=== PATIENT | female | born 1955 | race Caucasian/White ===

== ENCOUNTER 2017-04-24 19:29 | Emergency (ER) | payer MEDICARE, MEDICAID ==
[~2017-04-24] VITALS: Ht 162.6 cm; Wt 57.2 kg
[2017-04-24 19:45] VITALS: BP 140/68
[2017-04-24] MEDS ORDERED: GEMFIBROZIL600 MG ORAL (19:45)
[2017-04-24] MEDS ORDERED: ZYPREXA5 MG ORAL (19:45)
[2017-04-24] MEDS ORDERED: PROGRAF1 MG ORAL (19:45)
[2017-04-24] MEDS ORDERED: AMLODIPINE BESYL5 MG ORAL (19:45)
[2017-04-24] MEDS ORDERED: HYDROCODON-ACE1 EA15 ORAL (19:45)
[2017-04-24] MEDS ORDERED: PROPRANOLOL HCL10 MG ORAL (19:45)
[2017-04-24] MEDS ORDERED: MAG-OXIDE400 M1 PO (19:45)
[2017-04-24] MEDS ORDERED: FLUDROCORTISON0.1 MG PO (19:45)
[2017-04-24] MEDS ORDERED: URSODIOL300 MG ORAL (19:45)
[2017-04-24] MEDS ORDERED: TOPIRAMATE25 MG ORAL (19:45)
[2017-04-24] MEDS ORDERED: FLUCONAZOLE100 MG ORAL (19:45)
[2017-04-24] MEDS ORDERED: Morphine Sulfate 2mg/ml Inj IVP ONE (20:00)
[2017-04-24 20:40] VITALS: BP 140/68
[2017-04-24] MEDS ORDERED: ACETAMINOPHEN-1 EAC1 ORAL (21:49)
[2017-04-24 22:00] VITALS: BP 138/70
[2017-04-24 22:10] VITALS: BP 138/70
--- NOTE | 2017-04-24 22:11 | Emergency Room Report ---
History of Present Illness General Chief Complaint: Multiple Trauma/Fall Source: Patient, Family Member Present Illness HPI 61-year-old female brought in by EMS after traumatic slip and fall down 8 stairs at home Patient's daughter states she slipped because of slippers she was wearing states she rolled down stairs Denies LOC, vomiting, change in vision Complaining of pain to lower neck and left-sided chest- but denies associated shortness of breath Patient was allegedly holding a cup that impacted left chest during fall Denies any lower extremity or upper extremity pain Denies abdominal pain, vomiting Not on ASA or AC Allergies: Coded Allergies: PENICILLINS (Unverified Allergy, Unknown, 04/24/17) Patient History Past Medical History: none Past Surgical History: other - renal transplant Pertinent Family History: none Last Menstrual Period: None Now: No Immunizations: UTD Reviewed Nursing Documentation: PMH: Agreed, PSxH: Agreed Nursing Documentation-PMH Hx Hypertension: Yes Hx Diabetes: Yes Hx Seizures: Yes Review of Systems All Other Systems: negative except mentioned in HPI Physical Exam Vital Signs Date Time Temp Pulse Resp B/P (MAP) Pulse Ox O2 Delivery O2 Flow Rate FiO2 04/24/17 19:25 98.2 62 18 134/66 98 Room Air Sp02 EP Interpretation: reviewed, normal General Appearance: normal inspection, well appearing, no apparent distress, alert, GCS 15, non-toxic Head: normocephalic, atraumatic Eyes: bilateral eye PERRL, bilateral eye EOMI ENT: normal ENT inspection, hearing grossly normal, normal pharynx, no angioedema, normal voice, TMs + canals normal, uvula midline, moist mucus membranes Neck: normal inspection, full range of motion, supple, thyroid normal, no meningismus, no bony tend, other - Full neck ROM, mild ttp to lower C-spine. Respiratory: normal inspection, lungs clear, normal breath sounds, no rhonchi, no respiratory distress, no retraction, no accessory muscle use, no wheezing, speaking full sentences, other - No ecchymoses or crepitus on palpation to left chest. Mild ttp, chest symmetrical Cardiovascular #1: regular rate, rhythm, no edema, no JVD, normal capillary refill Gastrointestinal: normal inspection, normal bowel sounds, non tender, soft, no mass, no peritonitis, non-distended, no guarding, no hernia, no pulsatile mass Genitourinary: no CVA tenderness Musculoskeletal: normal inspection, back normal, normal range of motion, no calf tenderness, pelvis stable, Ale's Sign negative Neurologic: normal inspection, alert, oriented x3, responsive, pvc loader III-XII nml as tested, motor strength/tone normal, cerebellar normal, normal gait, speech normal Psychiatric: normal inspection, judgement/insight normal, mood/affect normal, no suicidal/homicidal ideation, no delusions Skin: normal inspection, normal color, no rash Lymphatic: normal inspection, no adenopathy Medical Decision Making Diagnostic Impression: Primary Impression: Fall Qualified Codes: W19.XXXA - Unspecified fall, initial encounter Additional Impressions: Neck pain Chest wall pain ER Course CT head and C-spine negative for acute injury chest x-ray and rib series did not show rib fracture or pneumothorax Was given IV morphine by EMS and in the ER with improvement in symptoms Advise Tylenol with codeine as needed and ice for pain close primary care followup as needed ER course: Patient has remained stable during ED stay. Patient is to be discharged to home. Prescriptions given are T#3 Patient is instructed to follow up with their primary care doctor within 5 days. . Strict return precautions discussed with patient such as fever, chills, worsening/severe pain, nausea, vomiting, which may indicate severe illness. Patient verbalizes understanding and agrees with plan. Please note that this Emergency Department Report was dictated using [employer] technology software, occasionally this can lead to erroneous entry secondary to interpretation by the dictation equipment Chest X-Ray Diagnostic Results Chest X-Ray Diagnostic Results : Chest X-Ray Ordered: Yes # of Views/Limited/Complete: 1 View Indication: Chest Pain EP Interpretation: Yes Interpretation: no consolidation, no effusion, no pneumothorax, no acute cardiopulmonary disease Impression: No acute disease Electronically Signed by: Dr Alec George MD Other X-Ray Diagnostic Results Other X-Ray Diagnostic Results : X-Ray ordered: left ribs # of Views/Limited Vs Complete: 3 View Indication: Pain EP Interpretation: Yes Interpretation: no dislocation, no soft tissue swelling Impression: No acute disease Electronically Signed by: Dr Alec George MD Last Vital Signs Date Time Temp Pulse Resp B/P (MAP) Pulse Ox O2 Delivery O2 Flow Rate FiO2 04/24/17 20:40 98.4 86 18 140/68 99 Room Air Status: improved Disposition: HOME, SELF-CARE Condition: Improved Scripts Acetaminophen With Codeine (T#3) (TYLENOL #3 TAB*) Y Tab 1 TAB ORAL Q8H Y for For Pain, #20 TAB Prov: ALEC GEORGE M.D. 04/24/17 Referrals: TERRY MORALES (PCP) Patient Instructions: Fall Prevention in the Home, [id number] Additional Instructions: - Take tylenol ONLY or apply ice to areas of pain as needed - Follow up with your primary doctor in 2-3 days ALEC GEORGE M.D. Apr 24, 2017 22:11
--- NOTE | 2017-04-25 08:22 | Diagnostic Imaging Report ---
Indication: Status post fall Technique: XRAY Chest 1v Comparison: None Findings: Heart size and mediastinal contours are within normal limits given technique. Atherosclerotic calcifications noted in the aortic arch. The thoracic aorta is mildly tortuous. There is no focal consolidation, pneumothorax or pleural effusion. Bones appear appear diffusely demineralized. Osseous structures demonstrate no acute abnormality. Surgical clips project in the right upper quadrant and left upper chest. Impression: No radiographic evidence of acute cardiopulmonary disease.
--- NOTE | 2017-04-25 08:25 | Diagnostic Imaging Report ---
Indication: Trauma Technique: XRAY Ribs 2v Uni L Comparison: 09/23/2013 Findings: There is a remote/healed fracture deformity of the left fifth and possibly left sixth ribs. No definite/displaced acute rib fractures identified. Multilevel degenerative changes seen in the thoracic spine. Lungs are clear. Surgical clips noted in the left axilla and right upper quadrant/epigastric region. Impression: No definite/displaced acute rib fracture. Remote fracture deformities of the left fifth and likely sixth ribs.
--- NOTE | 2017-04-25 09:41 | Diagnostic Imaging Report ---
Indication: Trauma Technique: Continuous helical CT scanning of the head was performed utilizing automated exposure control without intravenous contrast material. Axial and coronal reconstructions were obtained. Comparison: None CT dose: Total DLP 1376.09 mGycm; CTDI vol 70.38 mGy Findings: There is no acute intracranial hemorrhage, mass effect or cortical edema. Symmetric punctate hyperdensities in the bilateral basal ganglia compatible with calcifications. The ventricles, cisterns and sulci are prominent consistent with mild age-related atrophy. Mild periventricular hypoattenuation is seen, a nonspecific finding. The posterior fossa and fourth ventricle are unremarkable. The sella is mildly prominent. Visualized mastoid air cells and paranasal sinuses are unremarkable. No focal lesions of the bony calvarium or soft tissues of the scalp are seen. Atherosclerotic calcifications of the cavernous portions of the bilateral internal carotid arteries noted. Impression: No evidence of acute intracranial hemorrhage, mass effect or cortical edema. No skull fracture. Additional findings as above. This corresponds with the statrad preliminary report. The CT scanner at [facility] is accredited by the [employer] and the scans are performed using protocols designed to limit radiation exposure to as low as reasonably achievable to attain images of sufficient resolution adequate for diagnostic evaluation.
--- NOTE | 2017-04-25 09:52 | Diagnostic Imaging Report ---
Indication: Trauma Technique: Noncontrast CT of the cervical spine obtained with automated exposure control. Axial, sagittal and coronal reformats. CT dose: Total DLP 299.73 mGycm; CTDI vol 14 mGy Comparison: None Findings: There is no abnormal cervical curvature. There is mild straightening of the cervical lordosis. No acute fracture is seen. Vertebral body heights are preserved. Anterior and lateral atlantodental intervals are within normal limits. Multilevel degenerative change of the cervical spine is manifest by disc space narrowing, uncovertebral and facet joint hypertrophy and endplate osteophyte formation. These findings are most pronounced at C5-C6 where disc osteophyte complex mildly indents the thecal sac. There is no significant bony canal stenosis. There is no prevertebral soft tissue abnormality or collection. Imaged lung apices are clear. There is a 5 mm low-attenuation nodule in the right lobe of the thyroid. There is apparent thickening of the esophagus up to 8.7 mm. Impression: Multilevel degenerative change of the cervical spine. No acute fracture. Thickening of the wall of the proximal esophagus. Clinical correlation recommended. Recommend direct visualization with endoscopy to exclude the possibility of hyperplasia/mass. Subcentimeter low-attenuation thyroid nodules. Consider dedicated thyroid ultrasound. This is slightly discrepant from the preliminary report. Findings and follow-up recommendations discussed with Dr. Champagne in the ER ar 9:45 on 04/25/2017. The CT scanner at [facility] is accredited by the [employer] and the scans are performed using protocols designed to limit radiation exposure to as low as reasonably achievable to attain images of sufficient resolution adequate for diagnostic evaluation.
== END 2017-04-24 22:10 | disposition home or self-care (01) ==
LOC: EDBD 19:29 → EMR 19:41
DX: M54.2 Cervicalgia (principal); R07.89 Other chest pain; W10.9XXA Fall (on) (from) unspecified stairs and steps, initial encounter; Y92.009 Unspecified place in unspecified non-institutional (private) residence as the place of occurrence of the external cause; E11.9 Type 2 diabetes mellitus without complications; I10 Essential (primary) hypertension; Z88.0 Allergy status to penicillin
CPT/HCPCS: 70450; 71010; 71100; 72125; 96374; 96375; 99284; J2270; J2405